=== PATIENT | male | born 1940 | race Caucasian/White ===

== ENCOUNTER → 2018-09-22 | Outpatient (CLI) | payer MEDICARE | END | disposition home or self-care (01) | LOC: RAH 07:39 | PROVIDERS: ATTEND Internal Medicine Cardiovascular Disease | DX: J90 Pleural effusion, not elsewhere classified (principal); I71.2 Thoracic aortic aneurysm, without rupture; J98.11 Atelectasis; M47.819 Spondylosis without myelopathy or radiculopathy, site unspecified | CPT/HCPCS: 71250 ==

== ENCOUNTER → 2018-09-22 | Outpatient (CLI) | payer OTHER, SELFPAY | END | disposition home or self-care (01) | LOC: OIH 07:40 | PROVIDERS: ATTEND Internal Medicine Cardiovascular Disease | DX: Z13.6 Encounter for screening for cardiovascular disorders (principal) | CPT/HCPCS: 75571 ==

== ENCOUNTER 2018-09-25 14:45 | Observation (INO) | payer MEDICARE ==
[~2018-09-25] VITALS: Ht 177.8 cm; Wt 93.3 kg
[2018-09-25 15:15] LABS: EOSINOPHILS % (AUTO) 2.7 % (0.0-8.0); HEMATOCRIT 44.4 % (42-54); LYMPHOCYTES % (AUTO) 36.2 % (21.0-51.0); MEAN CORPUSCULAR HGB CONC 34.2 g/dL (32.0-36.0); MEAN CORPUSCULAR VOLUME 99.5 fL (79-99); MONOCYTES % (AUTO) 8.2 % (3.0-13.0); NEUTROPHILS % (AUTO) 51.9 % (40.0-77.0); NUCLEATED RED BLOOD CELLS 0.1 % (0.0-0.19); PLATELET COUNT (AUTO) 306 K/uL (130-400); RED BLOOD CELL COUNT(AUTO) 4.47 MIL/uL (4.50-6.20); RED CELL DISTRIBUTION WIDTH 12.6 % (11.0-15.5); WHITE BLOOD COUNT (AUTO) 5.6 K/uL (4.8-10.8)
[2018-09-25 15:21] LABS: CREATININE 0.9 mg/dL (0.5-1.5); POTASSIUM 3.7 mmol/L (3.5-5.1)
[2018-09-25 15:26] LABS: INR 1.02 (0.85-1.15); PARTIAL THROMBOPLASTIN TIME 30.9 SEC (26.3-35.5); PROTHROMBIN TIME 10.7 SEC (9.6-11.6)
[2018-09-25 15:28] LABS: ALBUMIN 3.8 g/dL (3.5-5.0); BILIRUBIN,TOTAL 0.4 mg/dL (0.2-1.0); TOTAL PROTEIN, SERUM 7.2 g/dL (6.0-8.3)
[2018-09-25] MEDS ORDERED: IOHEXOL-350 75 ML VIAL IV ONE (15:49)
[2018-09-25 15:52] LABS: B-TYPE NATRIURETIC PEPTIDE 62 pg/mL (0-100)
[2018-09-25] MEDS ORDERED: ENOXAPARIN SODIUM 100 MG/1 ML SQ ONE (16:27)
[2018-09-25] MEDS ORDERED: FUROSEMIDE 10 MG/ML 4ML VIAL ONE (17:50)
[2018-09-25 23:15] VITALS: BP 154/84
[2018-09-26] MEDS ORDERED: POTASSIUM CHLORIDE 10% ELIXIR 20 MEQ/15 ML UDCUP PO PRN (01:00)
[2018-09-26] MEDS ORDERED: POTASSIUM CHLORIDE 20MEQ/100ML 100 ML IV PRN (01:00)
[2018-09-26] MEDS ORDERED: LIDOCAINE HCL-MPF 1% 2ML VIAL IVP PRN (01:00)
[2018-09-26 03:48] VITALS: BP 143/76
[2018-09-26 04:25] LABS: BASOPHILS % (AUTO) 1.3 % (0.0-5.0); EOSINOPHILS % (AUTO) 3.5 % (0.0-8.0); HEMATOCRIT 42.8 % (42-54); LYMPHOCYTES % (AUTO) 34.2 % (21.0-51.0); MEAN CORPUSCULAR HEMOGLOBIN 33.4 pg (27.0-33.0); MEAN CORPUSCULAR VOLUME 98.3 fL (79-99); MONOCYTES % (AUTO) 11.6 % (3.0-13.0); NEUTROPHILS % (AUTO) 49.4 % (40.0-77.0); PLATELET COUNT (AUTO) 303 K/uL (130-400); RED BLOOD CELL COUNT(AUTO) 4.35 MIL/uL (4.50-6.20); RED CELL DISTRIBUTION WIDTH 12.5 % (11.0-15.5); WHITE BLOOD COUNT (AUTO) 6.6 K/uL (4.8-10.8)
[2018-09-26] MEDS ORDERED: APIXABAN 5 MG TABLET PO ONE (05:33)
[2018-09-26 08:00] VITALS: BP 151/94
[2018-09-26] MEDS ORDERED: ACETAMINOPHEN 325 MG TAB PO PRN (09:30)
[2018-09-26] MEDS ORDERED: LABETALOL HCL 5 MG/ML 20ML VIAL IV PRN (09:30)
[2018-09-26] MEDS ORDERED: ONDANSETRON HCL 4 MG/2 ML VIAL IVP PRN (09:30)
[2018-09-26 12:00] VITALS: BP 129/79
[2018-09-26] MEDS: POTASSIUM CHLORIDE 20 MEQ ERTAB PO PRN ×2 (13:51→16:55)
[2018-09-26] MEDS ORDERED: ACICLOVIR PO (15:38)
--- NOTE | 2018-09-26 16:00 | NUR ---
INITIAL MET W PT, INDP, NO ELIAS, [place], LIVES W SPOUSE, WHO WILL PROVIDE TRANSPORST, HAS BEEN WORKED UP RECENT AT [employer] FOR DVT/THROMBOSIS - EXAMS STILL PENDING, HX OF HTN, DOES NOT HAVE ALL RESULTS OF SCREENING YET. ORDER FOR VALERIA, PENDINGG TO GIVE PT COUPON. WILL PASS ON TO CM FOR AM Addendum: 09/27/18 at 0848 by RONEL POLLACK RN CM Amended: Links added.
[2018-09-26 16:28] VITALS: BP 121/81
[2018-09-26] MEDS ORDERED: FUROSEMIDE 20 MG TABLET PO SCH (18:00)
[2018-09-26 19:00] VITALS: BP 141/83
[2018-09-26] MEDS: APIXABAN 5 MG TABLET PO SCH (20:19)
[2018-09-26 23:00] VITALS: BP 128/79
[2018-09-27 03:59] VITALS: BP 139/62
[2018-09-27 04:39] LABS: HEMATOCRIT 41.5 % (42-54); MEAN CORPUSCULAR HEMOGLOBIN 34.8 pg (27.0-33.0); MEAN CORPUSCULAR VOLUME 99.3 fL (79-99); PLATELET COUNT (AUTO) 273 K/uL (130-400); RED BLOOD CELL COUNT(AUTO) 4.18 MIL/uL (4.50-6.20); RED CELL DISTRIBUTION WIDTH 12.5 % (11.0-15.5); WHITE BLOOD COUNT (AUTO) 6.5 K/uL (4.8-10.8)
[2018-09-27 04:51] LABS: POTASSIUM 3.8 mmol/L (3.5-5.1)
[2018-09-27 08:16] VITALS: BP 107/74
[2018-09-27] MEDS: APIXABAN 5 MG TABLET PO SCH (08:37)
[2018-09-27 11:27] VITALS: BP 120/73
[2018-09-27 16:12] VITALS: BP 129/86
--- NOTE | 2018-09-27 16:30 | NUR ---
Ladarius 30day Free trial coupon provided to pt and spouse this evening. Informed to take to pharmacy of choice along w script. They verblized understanding. Primary nurse updated.
--- NOTE | 2018-09-27 17:10 | NUR ---
DISCHARGE DISCHARGE TEACHING DONE WITH PATIENT AND USING TEACHBACK METHOD, VERBALIZED UNDERSTANDING. NO NOTED SOB OR DISTRESS. NEW MEDICATION ADMINISTRATION TEACHING DONE WITH PATIENT AND , VERBALIZED UNDERSTANDING. DVT AND PE PRECAUTION TEACHING DONE, VERBALIZED UNDERSTANDING. PT AWARE OF NEED TO SET UP APPOINTMENT WITH [facility] RECOVERY OPERATOR. IV REMOVED, CATH TIP INTACT. PENDING TO BE TRANSFERRED OUT VIA PRIVATE VEHICLE.
== END 2018-09-27 17:33 | disposition home or self-care (01) ==
LOC: EDH 14:45 → EDHIP 16:59 → 3AH 23:11 → 4AH 09-26 14:21
PROVIDERS: ADMIT Internal Medicine Pulmonary Disease; ATTEND Internal Medicine Pulmonary Disease
DX: I26.99 Other pulmonary embolism without acute cor pulmonale (principal); E66.9 Obesity, unspecified; G47.33 Obstructive sleep apnea (adult) (pediatric); I82.431 Acute embolism and thrombosis of right popliteal vein; M17.0 Bilateral primary osteoarthritis of knee; Z79.899 Other long term (current) drug therapy
CPT/HCPCS: 36415 ×3; 71045; 71275; 80048; 80053; 82550; 83880; 84484; 85025 ×2; 85027; 85610; 85730; 93005; 99291; G0378 ×49; J1650; J1940; Q9967

== ENCOUNTER → 2018-09-25 | Outpatient (CLI) | payer MEDICARE ==
[~2018-09-25] MED LIST: ACICLOVIR PO
== END | disposition home or self-care (01) ==
LOC: SHCH 10:40 → EDUNIT# 11:20
PROVIDERS: ATTEND Internal Medicine Cardiovascular Disease
DX: I82.813 Embolism and thrombosis of superficial veins of lower extremities, bilateral (principal); I82.431 Acute embolism and thrombosis of right popliteal vein
CPT/HCPCS: 93970

== ENCOUNTER → 2018-10-01 | Outpatient (CLI) | payer MEDICARE | END | disposition home or self-care (01) | LOC: RAH 08:56 → EDUNIT# 10-23 08:30 | PROVIDERS: ATTEND Internal Medicine Cardiovascular Disease | DX: I08.0 Rheumatic disorders of both mitral and aortic valves (principal); I11.9 Hypertensive heart disease without heart failure | CPT/HCPCS: 93306 ==

== ENCOUNTER → 2020-05-11 | Outpatient (CLI) | payer MEDICARE | END | disposition home or self-care (01) | LOC: SHCH 12:56 | PROVIDERS: ATTEND Internal Medicine Cardiovascular Disease | DX: I35.8 Other nonrheumatic aortic valve disorders (principal); R06.00 Dyspnea, unspecified; R55 Syncope and collapse; R60.9 Edema, unspecified | CPT/HCPCS: 93306; 93356; 93970 ==

== ENCOUNTER → 2020-05-11 | Outpatient (CLI) | payer OTHER | END | disposition home or self-care (01) | LOC: OIH 12:53 | PROVIDERS: ATTEND Internal Medicine Cardiovascular Disease | DX: Z13.6 Encounter for screening for cardiovascular disorders (principal) | CPT/HCPCS: 75571 ==

== ENCOUNTER → 2024-04-01 | Outpatient (CLI) | payer MEDICARE ==
[~2024-04-01] MED LIST changes: -ACICLOVIR PO; +ACYC200C24 PO; +APIX5TAB PO; +ATOR20TA65 PO; +CETI-89 PO; +CHOL100046 PO; +FESO4TAB PO; +FOLIC ACID PO; +VITA1CAP85 PO
[2024-04-01 16:58] LABS: CREATININE 0.8 mg/dL (0.5-1.3); POTASSIUM 4.1 mmol/L (3.5-5.1)
== END | disposition home or self-care (01) ==
LOC: LAB 14:41
PROVIDERS: ATTEND Internal Medicine Cardiovascular Disease
DX: R06.02 Shortness of breath (principal)
CPT/HCPCS: 36415; 80048

== ENCOUNTER → 2024-04-09 | Outpatient (CLI) | payer MEDICARE ==
[~2024-04-09] MED LIST changes: +IOHEXOL 350 MG/ML 100ML INFUS..BTL IV ONE
--- NOTE | 2024-04-09 12:31 | HMCIMG ---
CT CHEST W/CONTRAST REASON: SHORTNESS OF BREATH COMPARISON: 09/25/2018. TECHNIQUE: Images are obtained from lung bases to symphysis pubis following IV contrast, volume not submitted. TECHNIQUE: Multiple sequential axial images of the chest were obtained from the thoracic inlet through the upper pole of the kidneys without intravenous contrast administration. FINDINGS: Lungs are clear. There are no focal masses or infiltrates. There is no pleural effusion. Contrast outlines normal appearing hilar and mediastinal structures including normal appearance of the aorta. There is no mass or lymphadenopathy. Heart size is normal with no vascular congestion. Chest wall structures appear normal. Upper abdominal structures are unremarkable. IMPRESSION: 1. Negative postcontrast CT chest. CT was performed with one or more following dose reduction techniques: automated exposure control, adjustment of the mA and kv according to patient's size, or use of a iterative reconstruction technique.
== END | disposition home or self-care (01) ==
LOC: RAH 11:13
PROVIDERS: ATTEND Internal Medicine Cardiovascular Disease
DX: R06.02 Shortness of breath (principal)
CPT/HCPCS: 71260; Q9967

== ENCOUNTER 2024-08-04 22:39 | Emergency (ER) | payer MEDICARE ==
[~2024-08-04] VITALS: Ht 167.6 cm; Wt 95.7 kg
[~2024-08-04 22:39] MED LIST changes: -IOHEXOL 350 MG/ML 100ML INFUS..BTL IV ONE
[2024-08-04 23:50] VITALS: BP 125/95; TEMP 98.5; O2SAT 99
[2024-08-04 23:55] LABS: BASOPHILS # (AUTO) 0.03 K/uL (0.00-0.20); BASOPHILS % (AUTO) 0.5 % (0.0-5.0); EOSINOPHILS # (AUTO) 0.06 K/uL (0.00-0.70); HEMATOCRIT 44.1 % (42-54); IMMATURE GRANULOCYTE ABSOLUTE 0.02 K/uL (0-1); LYMPHOCYTES # (AUTO) 0.3 K/uL (1.0-4.8); LYMPHOCYTES % (AUTO) 5.2 % (21.0-51.0); MEAN CORPUSCULAR HEMOGLOBIN 34.9 pg (27.0-33.0); MEAN CORPUSCULAR HGB CONC 34.7 g/dL (32.0-36.0); MEAN CORPUSCULAR VOLUME 100.5 fL (79-99); MONOCYTES # (AUTO) 0.2 K/uL (0.1-1.0); NEUTROPHILS # (AUTO) 5.3 K/uL (1.8-7.7); PLATELET COUNT (AUTO) 153 K/uL (130-400); RED BLOOD CELL COUNT(AUTO) 4.39 MIL/uL (4.50-6.20); RED CELL DISTRIBUTION WIDTH 12.2 % (11.0-15.5); WHITE BLOOD COUNT (AUTO) 5.9 K/uL (4.8-10.8)
[2024-08-04] MEDS: Solu-medROL 125MG VIAL IVP ONE (23:56)
[2024-08-05 00:06] LABS: CREATININE 0.7 mg/dL (0.5-1.3)
[2024-08-05 00:13] LABS: MAGNESIUM 1.8 mg/dL (1.80-2.40)
[2024-08-05 00:16] LABS: COVID19 (SARS ANTIGEN RAPID) PRESUMPTIVE NEGATIVE (NEGATIVE)
[2024-08-05 00:22] LABS: INFLUENZA TYPE A Negative For Type A (NEGATIVE); INFLUENZA TYPE B Negative For Type B (NEGATIVE)
[2024-08-05 00:37] LABS: B-TYPE NATRIURETIC PEPTIDE 84 pg/mL (0-100)
[2024-08-05 00:54] VITALS: PULSE 71; RESP 20
[2024-08-05] MEDS: IpraTROPium/alBUTERol SULFATE 3 ML SOLUTION IH ONE (01:00)
[2024-08-05] MEDS ORDERED: AZIT250T PO (01:33)
[2024-08-05] MEDS ORDERED: AUD IH (01:33)
--- NOTE | 2024-08-05 01:34 | ERN ---
ED Note History of Present Illness Stated Complaint: C/O SOB Chief Complaint: Shortness of Breath Time Seen by MD: 23:08 Time Seen by Midlevel: 23:08 Dictation: The patient is an 84-year-old male with a history of PE on Eliquis, hyperlipidemia who presents to the emergency department with complaints of shortness of breath onset a 9:00 p.m. associated with nasal congestion. Patient denies any fevers, chest pain, cough. Allergies: Coded Allergies: No Known Drug Allergies (Unverified Allergy, Unknown, 09/25/18) Home Meds Reported Medications Cetirizine HCl (Zyrtec) 10 Mg Tablet, 10 MG PO DAILY, TAB 07/19/20 Acyclovir (Acyclovir) 200 Mg Capsule, 200 MG PO DAILY, CAP 07/19/20 Fesoterodine Fumarate (Toviaz) 4 Mg Tab.er.24h, 4 MG PO DAILY, TAB 07/19/20 Apixaban (Eliquis) 5 Mg Tablet, 5 MG PO BID, TAB 07/19/20 Atorvastatin Calcium (Atorvastatin Calcium) 20 Mg Tablet, 20 MG PO DAILY, TAB 07/19/20 [Folic Acid] No Conflict Check, 800 MCG PO DAILY 07/19/20 Vitamin B Complex (Vitamin B Complex) 1 Each Capsule, 1 EACH PO DAILY, CAP 07/19/20 Cholecalciferol (Vitamin D3) (Vitamin D3) 25 Mcg Capsule, 25 MCG PO DAILY, CAP 07/19/20 Past Medical History Past Medical History: Heart Disease, Other Additional Past Medical Hx: HX OF SLEEP APNEA, USES C-PAP; HX OF PULMONARY BILATERAL EMBOLISM Surgical History: Other RN Note Reviewed/Agreed w/PFSH: Yes Review of System Dictation Constitutional: Negative for fever,chills, and weight loss Eyes: Negative for injury, pain,redness, and discharge ENT: Negative for injury,pain or swelling positive for nasal congestion Cardiovascular: Negative for chest pain, palpitations, and edema Respiratory: Negative for , cough, and wheezing, positive for shortness of breath Abdomen/GI: Negative for abdominal pain, nausea, vomiting, diarrhea, and constipation Back: Negative for injury and pain : Negative for injury, bleeding and discharge MS/Extremity: Negative for injury and deformity Skin: Negative for rash, and discoloration Neuro: Negative for headache, weakness, numbness, tingling, and seizure Psych: Negative for suicide ideation, homicidal ideation, and hallucinations Initial Vital Sign VS Vital Signs Date Time Temp Pulse Resp B/P (MAP) Pulse Ox O2 Delivery O2 Flow Rate FiO2 08/04/24 22:41 98.4 86 20 145/90 96 Room Air 08/04/24 23:50 0 21 Physical Exam Dictation Vital Signs reviewed General Appearance: Alert, oriented x 3, no acute distress, well developed, nourished. Head and Face: non-traumatic. Eyes: PERRL, pink conjunctivas, eyelid no trauma, anterior chamber with arcus senilis. Ears: Pinnas intact and no signs of trauma or erythema ear canals clear and no discharge TM no erythema Nose: No discharge, no bleeding. Oropharynx: Mouth normal, tongue pink. pharynx clear,no erythema, tonsils no exudates, no abscesses noted, mucous membrane moist Neck: Supple, non-tender, no thyromegaly, no masses, no JVD, no bruits Breast:Deferred Chest:No tenderness, no crepitus, no paradoxical movement, no retractions Lungs:Clear, well-ventilated, symmetric, no rales, no wheezing, no rhonchi, no stridor, good breath sounds bilaterally Heart: Regular rate, regular rhythm, no murmur, no gallops Vascular: no peripheral edema, Abdomen: Soft, positive bowel sounds, nondistended, no guarding, nontender, no rebound, no masses no hepatomegaly, no splenomegaly, no Barger's sign, no hernias. Rectal: Deferred Genital: Deferred Neurological: Normal speech, motor function intact, sensory function intact Musculoskeletal: Neck nontender, full range of motion, back nontender, full ra nge of motion, Extremities: nontender, full range of motion Skin: Color pink, dry, no turgor, no rash, no lacerations, no abrasions, no contusions. Lymphatic: Deferred Results (Laboratory/Radiology) Laboratory/Radiology Laboratory Tests Test 08/04/24 23:21 White Blood Count 5.9 K/uL (4.8-10.8) Red Blood Count 4.39 MIL/uL (4.50-6.20) L Hemoglobin 15.3 g/dL (14.0-18.0) Hematocrit 44.1 % (42-54) Mean Corpuscular Volume 100.5 fL (79-99) H Mean Corpuscular Hemoglobin 34.9 pg (27.0-33.0) H Mean Corpuscular Hemoglobin Concent 34.7 g/dL (32.0-36.0) Red Cell Distribution Width 12.2 % (11.0-15.5) Platelet Count 153 K/uL (130-400) Mean Platelet Volume 11.5 fL (7.5-10.5) H Immature Granulocyte % (Auto) 0.3 % (0-1) Neutrophils (%) (Auto) 89.0 % (40.0-77.0) H Lymphocytes (%) (Auto) 5.2 % (21.0-51.0) L Monocytes (%) (Auto) 4.0 % (3.0-13.0) Eosinophils (%) (Auto) 1.0 % (0.0-8.0) Basophils (%) (Auto) 0.5 % (0.0-5.0) Neutrophils # (Auto) 5.3 K/uL (1.8-7.7) Lymphocytes # (Auto) 0.3 K/uL (1.0-4.8) L Monocytes # (Auto) 0.2 K/uL (0.1-1.0) Eosinophils # (Auto) 0.06 K/uL (0.00-0.70) Basophils # (Auto) 0.03 K/uL (0.00-0.20) Absolute Immature Granulocyte (auto 0.02 K/uL (0-1) Nucleated Red Blood Cells 0.0 % (0.0-0.19) White Cell Morphology Comment See comments Sodium Level 140 mmol/L (136-145) Potassium Level 4.0 mmol/L (3.5-5.1) Chloride Level 104 mmol/L (101-111) Carbon Dioxide Level 24 mmol/L (21-32) Blood Urea Nitrogen 16 mg/dL (7-18) Creatinine 0.7 mg/dL (0.5-1.3) Glomerular Filtration Rate Calc 91 mL/min (>90) Random Glucose 110 mg/dL (70-105) H Total Calcium 9.0 mg/dL (8.5-10.1) Magnesium Level 1.80 mg/dL (1.80-2.40) Total Creatine Kinase 53 U/L (21-232) # Troponin I High Sensitivity 5.7 ng/L (4-75) B-Type Natriuretic Peptide 84 pg/mL (0-100) Influenza Type A Antigen Negative For Type A Influenza Type B Antigen Negative For Type B SARS-CoV-2 Antigen (Rapid) PRESUMPTIVE NEGATIVE Labs Reviewed?: Yes EKG: (+) rhythm (S rhythm) EKG Comment: Date:08/04/2024 Time:2328 Ventricular rate:79 NC interval:170 QRS duration:93 QT/QTc:402 EKG interpretation: Sinus rhythm Reviewed by ED Attending no STEMI ED Course ED Course Orders Procedure Category Date Status Time Cbc With Differential LAB 08/04/24 Complete 23:22 B-Type Natriuretic LAB 08/04/24 Complete Peptide 23:22 Chest 1vw RAD 08/04/24 Taken 23:22 12 Lead Ekg Tracing- EKG 08/04/24 Logged Technical 23:22 Magnesium LAB 08/04/24 Complete 23:22 Urinalysis Profile LAB 08/04/24 Logged 23:22 Basic Metabolic Panel LAB 08/04/24 Complete 23:22 Covid19 (Sars Antigen LAB 08/04/24 Complete Rapid) 23:22 Influenza Type A & B, LAB 08/04/24 Complete Rapid 23:22 Ipratropium/Albuterol PHA 08/04/24 Complete Neb (Duoneb) 23:30 Methylprednisolone PHA 08/04/24 Complete Succ 125mg (Solu-Medr 23:30 Cardiac Panel LAB 08/04/24 Complete 23:22 Current Medications Medications (Trade) Dose Ordered Sig/Martin Route PRN Reason Start Time Stop Time Status Last Admin Dose Admin Albuterol (DUOneb) 1 UDVIAL ONCE ONCE IH 08/04/24 23:30 08/04/24 23:33 DC 08/05/24 01:00 Methylprednisolone Sodium Succinate (Solu-medROL 125MG) 125 mg ONCE ONCE IVP 08/04/24 23:30 08/04/24 23:33 DC 08/04/24 23:56 Vital Signs Date Time Temp Pulse Resp B/P (MAP) Pulse Ox O2 Delivery O2 Flow Rate FiO2 08/05/24 00:54 71 20 08/04/24 23:50 98.4 88 18 125/95 99 Room Air* 0 21 08/04/24 22:41 98.4 86 20 145/90 96 Room Air Medical Decision Making MDM The patient is an 84-year-old male with a history of PE on Eliquis, hyperlipidemia who presents to the emergency department with complaints of shortness of breath onset a 9:00 p.m. associated with nasal congestion. Patient denies any fevers, chest pain, cough. CBC showed no leukocytosis, no anemia, chemistry showed GFR of 91, no electrolyte imbalance, negative BNP, negative troponin, serology negative. Chest x-ray showed increased markings.. On physical exam patient in no acute distress, stable vital signs. No hypoxemia. Patient reports his breathing is back to normal after breathing treatments and is no longer having any shortness of breath. Labs and imaging discussed with the patient who agrees to be discharged and follow up with PCP. Differential diagnosis: Pneumonia, pneumothorax, ACS, upper respiratory infection Need for hospitalization: Patient does not meet criteria for hospitalization. There are no social concerns with this patient. DX & DISP Disposition: Discharge Departure Impression: Primary Impression: Pneumonitis Additional Impression: Shortness of breath Condition: Stable Scripts Albuterol Sulfate (Albuterol Sulfate) 2.5 Mg/0.5 Ml Vial.neb 2.5 MG IH Q6H for wheezing/sob, #20 INH 0 Refills Prov: YADIEL BROOKS [employer] AIDE TEACHER 08/05/24 Azithromycin (Zithromax) 250 Mg Tablet 250 MG PO AD for 5 Days, #6 TAB Take 2 250 mg tablets on day 1, then take 1 250mg tablets daily for 4 days Prov: YADIEL BROOKS [facility] 08/05/24 Additional Instructions: Please follow up with your primary doctor in 1-2 days. If her symptoms worsen, you develop severe shortness of breath and chest pain please return to ER. Taking medications as prescribed. FOLLOW-UP WITH PRIMARY CARE PROVIDER IN 1 TO 2 DAYS. TAKE MEDICATIONS DIRECTED HERE IN THE EMERGENCY ROOM. OKAY TO CONTINUE HOME MEDICATIONS UNLESS OTHERWISE DISCUSSED DURING YOUR VISIT IN THE EMERGENCY ROOM TODAY. RETURN TO YOUR NEAREST EMERGENCY ROOM IF SYMPTOMS WORSEN OR IF THERE IS NO IMPROVEMENT. CALL 911 IF YOU NEED IMMEDIATE ASSISTANCE. TAKE TYLENOL OR MOTRIN SNNB-[id number]-EDBSOTY NEEDED AND IF NO CONTRAINDICATIONS ARE PRESENT. INCREASE ORAL HYDRATION. A WOUND CULTURE OR URINE CULTURE WAS ORDERED HERE IN THE EMERGENCY ROOM DEPARTMENT PLEASE FOLLOW-UP WITH PRIMARY CARE PROVIDER AND ADVISE THEM TO GET REPEAT PORTS FROM OUR FACILITY. IF YOU HAD ANY OMAYRA WRAP/SPLINTS THAT WERE APPLIED HERE, PLEASE DO NOT REMOVE THEM UNTIL YOU SEE YOUR PRIMARY CARE OR SPECIALTY. Referrals: NIGEL CALI MD (PCP) Time of Disposition: 01:31 I have reviewed the case, and I agree with, Diagnosis and Plan YADIEL BROOKS [employer] AIDE TEACHER August 05, 2024 01:33
[2024-08-05] MEDS: cefTRIAXone 1G VIAL IVPB ONE (02:08)
--- NOTE | 2024-08-05 08:35 | EKG ---
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
--- NOTE | 2024-08-05 09:07 | HMCIMG ---
Exam Type: CHEST 1VW Clinical Information: sob Comparison: None Findings: Left mid lung benign calcified granuloma. The lungs are clear of infiltrates. The heart is normal in size. The bony and soft tissue structures of the chest are unremarkable. Impression: Clear lungs.
== END 2024-08-05 02:19 | disposition home or self-care (01) ==
LOC: EDH 22:39
DX: J98.4 Other disorders of lung (principal); G47.30 Sleep apnea, unspecified; Z20.822 Contact with and (suspected) exposure to COVID-19; Z79.01 Long term (current) use of anticoagulants; Z79.624 Long term (current) use of inhibitors of nucleotide synthesis; Z79.899 Other long term (current) drug therapy; Z98.890 Other specified postprocedural states
CPT/HCPCS: 99285; 96374; 71045; 87426; 82550; 83735; 84484; 80048; 83880; 85025; 87804 ×2; 36415; 93005; 96375; 94640; J2919; J0696